=== PATIENT | female | born 1955 | race Caucasian/White ===

== ENCOUNTER 2019-08-25 14:53 | Emergency (ER) | payer OTHER ==
[~2019-08-25] VITALS: Ht 162.6 cm; Wt 77.1 kg
[2019-08-25 14:59] VITALS: Ht 162.6 cm; Wt 77.1 kg
[2019-08-25 16:28] VITALS: BP 120/71
== END 2019-08-25 16:33 | disposition home or self-care (01) ==
LOC: ED 14:53
DX: S80.211A Abrasion, right knee, initial encounter (principal); F17.210 Nicotine dependence, cigarettes, uncomplicated; I10 Essential (primary) hypertension; Z98.890 Other specified postprocedural states; Z90.5 Acquired absence of kidney; W01.0XXA Fall on same level from slipping, tripping and stumbling without subsequent striking against object, initial encounter; Y93.89 Activity, other specified; Y92.89 Other specified places as the place of occurrence of the external cause; Y99.8 Other external cause status
CPT/HCPCS: 99406; Q0092